=== PATIENT | male | born 1980 | race Caucasian/White ===

== ENCOUNTER 2020-05-18 07:10 | Outpatient (CLI) | payer BC, SELFPAY ==
--- NOTE | ~2020-05-18 | MR_ITS ---
EXAMINATION: MR knee RT wo con DATE: 05/18/2020 09:16 INDICATION: Right knee pain. TECHNIQUE: Magnetic resonance imaging (MRI) of the right knee was performed without intravenous contr ast. Sequences included axial PD-weighted FS FSE, coronal PD-weighted FSE and PD-weighted FS FSE, sag ittal PD-weighted FSE, and sagittal T2-weighted FS FSE. COMPARISON: None. FINDINGS: Medial compartment: Medial meniscus is normal. Medial compartment cartilage is normal. Lateral compartment: Lateral meniscus is normal. Lateral compartment cartilage is normal. Patellofemoral compartment: There is deep cartilage fissuring of patellar medial and lateral facets. Trochlear cartilage is fred l. Ligaments and tendons: Anterior cruciate ligament is less steep than Blumensaat's line suspicious for complete tear. Posteri or cruciate ligament is normal. Medial collateral ligament is normal. There is an avulsion fracture o f proximal tip of fibula with 1.5 cm distraction. Fluid: There is a small knee joint effusion. Osseous/other: There is a subchondral stellate fracture of medial femoral condyle with low signal fracture lines and bone marrow edema. There is bone marrow edema of lateral femoral condyle and lateral tibial condyle, consistent with contusions. IMPRESSION: 1. Avulsion fracture of proximal tip of fibula. 2. Subchondral stellate fracture of medial femoral condyle. 3. Abnormal orientation of anterior cruciate ligament suspicious for complete tear. 4. Mild patellar chondrosis. 5. Small knee joint effusion. Reviewed, dictated and finalized at location A. IS[facility] MIXER IMPRESSION: 1. Avulsion fracture of proximal tip of fibula. 2. Subchondral stellate fracture of medial femoral condyle. 3. Abnormal orientation of anterior cruciate ligament suspicious for complete t ear. 4. Mild patellar chondrosis. 5. Small knee joint effusion.
== END 2020-05-18 07:11 | disposition home or self-care (01) ==
PROVIDERS: Visit Provider Orthopaedic Surgery Hand Surgery
DX: M17.11 Unilateral primary osteoarthritis, right knee (principal); M25.461 Effusion, right knee
CPT/HCPCS: 73721

== ENCOUNTER 2020-12-21 19:53 | Emergency (ER) | payer BC, SELFPAY ==
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
[2020-12-21 20:00] VITALS: BP 139/71; PULSE 109; RESP 20; TEMP 36.6; O2SAT 96
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
[2020-12-21 20:39] LABS: Basophils Absolute Auto 0.1 K/mm3 (0.0-0.1); Basophils Percent Auto 0.5 % (0.2-1.2); Eosinophils Absolute Auto 0.3 K/mm3 (0-0.3); Eosinophils Percent Auto 2.5 % (0-4.4); Immature Granulocyte Absolute 0.03 K/mm3 (0.00-0.031); Immature Granulocyte Percent A 0.3 % (0-0.5); Lymphocytes Absolute Auto 2.24 K/mm3 (0.9-3.2); Lymphocytes Percent Auto 18.8 % (18.3-44.2); Mean Corpuscular HGB Conc 34.1 g/dl (32-36); Mean Corpuscular Volume 84.9 fl (80-100); Mean Platelet Volume 8.5 fl (7.4-10.4); Monocytes Absolute Auto 0.9 K/mm3 (0.1-0.6); Monocytes Percent Auto 7.7 % (2.6-8.5); Neutrophils Absolute Auto 8.3 K/mm3 (1.3-6.7); Neutrophils Percent Auto 70.2 % (45.5-73.1); Platelet Count Result 258 k/mm3 (150-375); Red Blood Count 5.18 M/mm3 (4.6-6.20); Red Cell Distribution Width 12.6 % (11.5-14.5); White Blood Count 11.9 K/mm3 (4.5-10.0)
[2020-12-21 20:48] LABS: Alanine Aminotransferase 43 U/L (4-50); Albumin Level 4.6 g/dL (3.5-5.1); Alkaline Phosphatase 115 U/L (38-126); Anion Gap 7 mmol/L (8-16); Aspartate Amino Transferase 44 U/L (17-59); Bilirubin,Total 0.4 mg/dL (0.2-1.3); Blood Urea Nitrogen 15 mg/dL (9-20); Calcium 9.4 mg/dL (8.4-10.2); Carbon Dioxide 29 mmol/L (22-30); Chloride 105 mmol/L (98-107); Estimated CRCL calculation 84 ml/min; Estimated Glomerular Filt Rate > 60; Glucose 95 mg/dL (75-110); INR 0.9; Prothrombin Time 12.7 Seconds (11.1-14.7); Sodium 141 mmol/L (137-145)
[2020-12-21 20:49] LABS: Partial Thromboplastin Time 23.8 SECONDS (22.3-36.8)
[2020-12-21] MEDS: SODIUM CHLORIDE 0.9% IV 1,000 ML 999 ML IV CONT (20:50)
[2020-12-21] MEDS: diazePAM INJ (*CRX) 10 MG/2 ML SYRINGE 5 MG IV PUSH (20:51)
[2020-12-21 21:51] VITALS: BP 104/68; PULSE 70; RESP 18; O2SAT 95
[2020-12-21 23:37] VITALS: BP 101/72; PULSE 78; RESP 20; O2SAT 99
== END 2020-12-22 00:20 | disposition home or self-care (01) ==
PROVIDERS: Emergency Medicine Emergency Medical Services; Emergency Provider Emergency Medicine
DX: S70.11XA Contusion of right thigh, initial encounter (principal); S50.311A Abrasion of right elbow, initial encounter; S30.0XXA Contusion of lower back and pelvis, initial encounter; F17.200 Nicotine dependence, unspecified, uncomplicated; V23.4XXA Motorcycle driver injured in collision with car, pick-up truck or van in traffic accident, initial encounter
CPT/HCPCS: 36415; 71260; 74177; 80053; 85025; 85610; 85730; 96365; 96375; 99284; J0131; J3360; J7030; Q9967

== ENCOUNTER 2022-10-05 01:04 | Emergency (ER) | payer BC, SELFPAY ==
--- NOTE | ~2022-10-05 | CT_ITS ---
CT of the Abdomen and Pelvis: Indication: Abdominal pain Technique: 2.5 mm axial scans were obtained through the abdomen and pelvis following intravenous adm inistration of 100 cc of Omnipaque 350. Dose reduction technique was used on this scan by utilizing a utomated exposure control and iterative reconstruction technique. The dose-length product (DLP) was 3 54.05 mGy-cm. COMPARISON: 12/21/2020 Findings: Scans through the lung bases are unremarkable. The liver, spleen, pancreas, gallbladder, adrenals and kidneys are within normal limits. No evidence of aortic aneurysm. No lymphadenopathy. There is probable mild wall thickening and adjacent inflammatory change at the gastric antrum/proxima l duodenum. No bowel obstruction evident. No abscess or free air. Images through the pelvis were performed. Urinary bladder unremarkable. Prostate gland and seminal ve sicles are unremarkable. No ascites. Impression: Wall thickening with surrounding inflammatory change the gastric antrum/proximal duodenum. Consider p eptic ulcer disease, versus other duodenitis versus possibly groove pancreatitis. No abscess or free air evident. Reviewed, dictated and finalized at location . Impression: Wall thickening with surrounding inflammatory change the gastric antrum/proxima l duodenum. Consider peptic ulcer disease, versus other duodenitis versus possi jhonatan groove pancreatitis. No abscess or free air evident.
[2022-10-05 01:07] VITALS: BP 127/72; PULSE 66; RESP 20; TEMP 36.7; O2SAT 98
[2022-10-05 03:06] VITALS: BP 139/92; PULSE 54; RESP 10; TEMP 36.5; O2SAT 100
[2022-10-05] MEDS: SODIUM CHLORIDE 0.9% IV 1,000 ML 999 ML IV CONT (04:22)
[2022-10-05] MEDS: MORPHINE SULFATE (*CRX) 4 MG/ML INJ IV PUSH ×2 (04:24→07:03)
[2022-10-05] MEDS: ONDANSETRON INJ 4 MG/2 ML VIAL IV PUSH (04:24)
--- NOTE | 2022-10-05 04:29 | PC.NURSE ---
Patient stated he had no urgency to urinate and is refusing straight catheter. Notified Dr. Davis.
[2022-10-05 04:32] LABS: Basophils Percent Auto 0.2 % (0.2-1.2); Eosinophils Absolute Auto 0.3 K/mm3 (0-0.3); Hematocrit 44.6 % (42.0-52.0); Hemoglobin 15.1 g/dL (14.0-18.0); Immature Granulocyte Absolute 0.02 K/mm3 (0.00-0.031); Immature Granulocyte Percent A 0.2 % (0-0.5); Lymphocytes Absolute Auto 1.41 K/mm3 (0.9-3.2); Lymphocytes Percent Auto 16.9 % (18.3-44.2); Mean Corpuscular HGB Conc 33.9 g/dl (32-36); Mean Corpuscular Hemoglobin 29.9 pg (26-34); Mean Corpuscular Volume 88.3 fl (80-100); Mean Platelet Volume 9.4 fl (7.4-10.4); Monocytes Absolute Auto 0.3 K/mm3 (0.1-0.6); Monocytes Percent Auto 4.1 % (2.6-8.5); Neutrophils Absolute Auto 6.3 K/mm3 (1.3-6.7); Neutrophils Percent Auto 75.6 % (45.5-73.1); Platelet Count Result 239 k/mm3 (150-375); Red Blood Count 5.05 M/mm3 (4.6-6.20); Red Cell Distribution Width 12.8 % (11.5-14.5); White Blood Count 8.3 K/mm3 (4.5-10.0)
[2022-10-05 04:43] LABS: Alanine Aminotransferase 28 U/L (6-50); Albumin Level 4.7 g/dL (3.5-5.1); Alkaline Phosphatase 113 U/L (38-126); Anion Gap 5 mmol/L (8-16); Aspartate Amino Transferase 34 U/L (17-59); Bilirubin,Total 0.9 mg/dL (0.2-1.3); Blood Urea Nitrogen 6 mg/dL (9-20); Calcium 9.5 mg/dL (8.4-10.2); Carbon Dioxide 33 mmol/L (22-30); Chloride 100 mmol/L (98-107); Estimated CRCL calculation 115 ml/min; Estimated Glomerular Filt Rate > 60; Glucose 98 mg/dL (65-110); Lipase 41 U/L (23-300); Potassium 3.4 mmol/L (3.4-5.0); Sodium 138 mmol/L (137-145)
--- NOTE | 2022-10-05 05:04 | PC.NURSE ---
Patient sleeping at the moment comfortable.
--- NOTE | 2022-10-05 05:26 | ED.GENADULT ---
HPI - General Adult General Chief complaint: Abdominal Pain Stated complaint: abd pain Time Seen by Provider: 10/05/22 03:05 History of Present Illness HPI narrative: Patient 42-year-old gentleman who presents emergency department with chief complaint of abdominal pain. Patient reports he started having pain in the epigastric and right upper quadrant area started this evening patient reports that it feels similar to when he had an ulcer before in the past patient denies diarrhea reports that he has had no prior abdominal surgeries the patient denies drinking alcohol patient reports the symptoms not improved by anything or they worsen but he thinks Related Data Allergies Allergy/AdvReac Type Severity Reaction Status Date / Time codeine Allergy Unknown Verified 05/25/10 13:11 No Known Allergies Allergy Unknown Unverified 09/14/18 07:17 Review of Systems Review of Systems: A 10 system review of systems was completed on the patient and is negative except for what is stated in the HPI. Nursing and ancillary documentation was reviewed. [facility] Social History Social History Smoking status: Current every day smoker Gender identity (if verbalized by the patient): Male Exam Narrative: GENERAL: Well-appearing, well-nourished, and in no acute distress. HEAD: Normocephalic, atraumatic. EYES: PERRLA and EOMI. ENT: Nares clear, no rhinorrhea or epistaxis. Mucous membranes moist. NECK: Supple. CHEST: Clear to auscultation. No respiratory distress. HEART: Regular rate and rhythm. No murmur heard. Normal peripheral pulses. ABDOMEN: Soft, tenderness to palpation in the epigastric region and right upper quadrant, nondistended, normal active bowel sounds. EXTREMITIES: Normal range of motion. No edema. SKIN: Warm, dry, no rash. NEURO: No focal deficits. Alert and oriented x3. PSYCH: Normal mood and affect. Course Vital Signs Vital signs: Vital Signs Temperature 36.7 C 10/05/22 01:07 Pulse Rate 66 10/05/22 01:07 Respiratory Rate 20 10/05/22 01:07 Blood Pressure 127/72 10/05/22 01:07 Pulse Oximetry 98 10/05/22 01:07 Oxygen Delivery Room Air 10/05/22 01:07 Temperature 36.5 C 10/05/22 03:06 Pulse Rate 49 L 10/05/22 05:27 Respiratory Rate 12 10/05/22 05:27 Blood Pressure 133/81 10/05/22 05:27 Pulse Oximetry 98 10/05/22 05:27 Oxygen Delivery Room Air 10/05/22 01:07 Medical Decision Making MDM Narrative Medical decision making narrative: Differential diagnosis includes gastritis, gastroenteritis, colitis, appendicitis Laboratory studies were obtained and show normal CBC electrolytes were within normal limits liver enzymes were normal lipase was normal. CT scan of the abdomen pelvis showed: Wall thickening with surrounding inflammatory change the gastric antrum/proximal duodenum. Consider peptic ulcer disease, versus other duodenitis versus possibly groove pancreatitis. No abscess or free air evident. Vital Signs Vital Signs: Vital Signs Temperature 36.7 C 10/05/22 01:07 Pulse Rate 66 10/05/22 01:07 Respiratory Rate 20 10/05/22 01:07 Blood Pressure 127/72 10/05/22 01:07 Pulse Oximetry 98 10/05/22 01:07 Oxygen Delivery Room Air 10/05/22 01:07 Temperature 36.5 C 10/05/22 03:06 Pulse Rate 49 L 10/05/22 05:27 Respiratory Rate 12 10/05/22 05:27 Blood Pressure 133/81 10/05/22 05:27 Pulse Oximetry 98 10/05/22 05:27 Oxygen Delivery Room Air 10/05/22 01:07 Lab Data 10/05/22 04:27 10/05/22 04:27 Labs: Lab Results 10/05/22 10/05/22 Range/Units 04:27 04:27 WBC 8.3 (4.5-10.0) K/mm3 RBC 5.05 (4.6-6.20) M/mm3 Hgb 15.1 (14.0-18.0) g/dL Hct 44.6 (42.0-52.0) % MCV 88.3 (80-100) fl MCH 29.9 (26-34) pg MCHC 33.9 (32-36) g/dl RDW 12.8 (11.5-14.5) % Plt Count 239 (150-375) k/mm3 MPV 9.4 (7.4-10.4) fl Immat
[2022-10-05 05:27] VITALS: BP 133/81; PULSE 49; RESP 12; O2SAT 98
[2022-10-05] MEDS: SUCRALFATE SUSP 100 MG/ML 10 ML UDC 1000 MG PO (07:02)
[2022-10-05] MEDS: PANTOPRAZOLE SODIUM IV 40 MG VIAL IV PUSH (07:07)
[2022-10-05 07:19] VITALS: BP 133/81; PULSE 61; RESP 15; O2SAT 97
== END 2022-10-05 07:21 | disposition home or self-care (01) ==
PROVIDERS: Emergency Provider Emergency Medicine
DX: K29.70 Gastritis, unspecified, without bleeding (principal); F17.200 Nicotine dependence, unspecified, uncomplicated
CPT/HCPCS: 36415; 74177; 80053; 83690; 85025; 96361; 96374; 96375; 96376; 99284; A9270; C9113; J2270; J2405; J7030; Q9967

== ENCOUNTER 2023-01-18 14:15 | Emergency (ER) | payer BC, SELFPAY ==
[2023-01-18 14:18] VITALS: BP 94/73; PULSE 74; RESP 16; TEMP 36.4; O2SAT 100
--- NOTE | 2023-01-18 14:21 | ECG_ITS ---
Measurements Intervals [place] Rate: 84 P: 14 AL: 136 QRS: 57 QRSD: 101 T: 45 QT: 375 QTc: 446 Interpretive Statements SINUS RHYTHM BASELINE ARTIFACT- II, III, AVL, AVF NORMAL ECG NO PREVIOUS ECG AVAILABLE FOR COMPARISON Electronically Signed On 01-18-2023 16:08:40 CDT by Fortunato Leger D.O.
--- NOTE | 2023-01-18 14:57 | PC.NURSE ---
attempted blood draw, pt states he always needs an US for IV/Labs.
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
--- NOTE | 2023-01-18 15:52 | PC.NURSE ---
This RN to room to attempt IV access and admin 0.4mg narcan IVP per EDP VORB. Upon attempting to stick patient for IV, they pulled arm back causing 1st attempt to be unsuccessful. Patient asked to stay still. Patient stuck 2nd time and patient again uncooperative. EDP, Arielle, to bedside at this time. Patient wanting to leave. Patient stating, I don't want to get stuck with another fucking needle . Patient alert and answered orientation questions appropriately. Patient having difficult time keeping eyes open. Patient adamant about leaving AMA and agreeable to signing paperwork.
--- NOTE | 2023-01-18 15:53 | PC.NURSE ---
Red and blue capsule found on patient. Placed in specimen cup. Handed to Arielle MAC.
--- NOTE | 2023-01-18 16:12 | PC.NURSE ---
Pt refusing to have blood drawn or continue care. EDP aware, has discussed risks. Pt A&Ox4, this RN discussed risks of leaving prior to evaluation and recommended f/u with ER EMRE if symptoms worsen/continue.
== END 2023-01-18 16:16 | disposition left against medical advice (07) ==
LOC: ANHED 16:13
PROVIDERS: Emergency Provider Physician Assistant
DX: R41.82 Altered mental status, unspecified (principal); F17.200 Nicotine dependence, unspecified, uncomplicated
CPT/HCPCS: 93005; 99283; J2310